=== PATIENT | female | born 1945 | race Caucasian/White ===

== ENCOUNTER → 2016-12-28 | Outpatient (CLI) | payer OTHER ==
--- NOTE | 2016-12-28 13:24 | MA ---
Screening Digital Mammogram With iCAD Analysis Clinical Indications: Routine screening. Technique: The patient has breast implants but would not allow nonimplant-displaced views. Craniocaud al oblique and true lateral views were obtained bilaterally. This examination was processed by the [email or web address] computer-aided detection system. Comparison: October 2015 and January 2007. Breast Density: Type B; Scattered fibroglandular densities. Findings: CAD was reviewed. Limited views show no suspicious findings. There has been no significant change in the appearance of either breast. Impression: Negative limited mammogram. BI-RADS 1. Recommendation: Routine mammographic screening in one year as long as physical examination is negativ [facility] will send a result letter to the patient. Negative mammography should not preclude additional workup of a clinically suspicious finding. The patient's information is entered into a reminder system with a target due date for her next mammo gram.
== END ==
LOC: FIMAGING 11:19
DX: Z12.31 Encounter for screening mammogram for malignant neoplasm of breast (principal)
CPT/HCPCS: G0202

== ENCOUNTER → 2017-03-23 | Outpatient (CLI) | payer OTHER | LOC: FIMAGING 14:23 | PROVIDERS: ATTEND Family Medicine | DX: R05 Cough (principal); R51 Headache; D64.9 Anemia, unspecified; Z95.4 Presence of other heart-valve replacement; I25.10 Atherosclerotic heart disease of native coronary artery without angina pectoris ==

== ENCOUNTER → 2017-07-22 | Outpatient (CLI) | payer OTHER | LOC: FIMAGING 15:17 | PROVIDERS: ATTEND Family Medicine | DX: N20.0 Calculus of kidney (principal); M16.12 Unilateral primary osteoarthritis, left hip ==

== ENCOUNTER → 2017-12-30 | Outpatient (CLI) | payer OTHER | LOC: FIMAGING 11:09 | PROVIDERS: ATTEND Family Medicine | DX: Z12.31 Encounter for screening mammogram for malignant neoplasm of breast (principal) ==

== ENCOUNTER → 2018-02-23 | Outpatient (CLI) | payer OTHER | LOC: FIMAGING 12:11 | PROVIDERS: ATTEND Family Medicine | DX: M16.0 Bilateral primary osteoarthritis of hip (principal) ==

== ENCOUNTER → 2018-03-24 | Outpatient (CLI) | payer OTHER | LOC: FIMAGING 13:20 | PROVIDERS: ATTEND Family Medicine | DX: Z13.820 Encounter for screening for osteoporosis (principal); M81.0 Age-related osteoporosis without current pathological fracture; M25.552 Pain in left hip; K52.9 Noninfective gastroenteritis and colitis, unspecified ==

== ENCOUNTER 2018-09-22 05:57 | Inpatient (IN) | payer OTHER ==
[2018-09-22] MEDS ORDERED: ROPIVACAINE 0.2% 80 MG, EPINEPHrine 0.2 MG, KETOROLAC TROMETHAMINE 30 MG in SYRINGE 0 ML IU ONE (06:00)
[2018-09-22] MEDS ORDERED: TRANEXAMIC ACID 3,000 MG in NS (SYRINGE) 50 ML IRR ONE (06:00)
--- NOTE | 2018-09-22 06:12 | PDHPUP ---
History & Physical Update H&P update statement: This history and physical update is based on an assessment of the patient which was completed after admission or registration (within 24 hours), but prior to the surgery/procedure. H&P update: H&P reviewed & patient examined, no change in patient's condition since H&P completed
[2018-09-22] MEDS ORDERED: FAMOTIDINE 20 MG TAB PO ONE (06:30)
[2018-09-22] MEDS ORDERED: ceFAZolin 2 GM/DEXTROSE 100 ML IV ONE (06:30)
[2018-09-22] MEDS ORDERED: DEXAMETHASONE 4 MG/ML VIAL IVP ONE (06:30)
[2018-09-22] MEDS ORDERED: ACETAMINOPHEN 325 MG TAB PO ONE (06:30)
[2018-09-22] MEDS ORDERED: LR 1,000 ML IV ONE (06:31)
[2018-09-22] MEDS ORDERED: PROPOFOL/EMULSION 500 MG/50 ML BOTTLE IV ONE (07:09)
[2018-09-22] MEDS ORDERED: BUPIVACAINE/DEXTROSE 7.5MG/ML 2 ML SPINAL AMP SP ONE (07:12)
[2018-09-22] MEDS ORDERED: TRANEXAMIC ACID 3,000 MG/50 ML BAG IRR ONE (07:17)
[2018-09-22] MEDS ORDERED: MIDAZOLAM 2 MG/2 ML VIAL IVP ONE (07:22)
--- NOTE | 2018-09-22 07:25 | PDANEPAE ---
ANE History of Present Illness 73 year old woman for left hip arthroplasty. History of aortic valve replacement and CAD. ANE Past Medical History - Cardiovascular History Hx Hypertension: No Hx Arrhythmias: No Hx Chest Pain: No Hx Coronary Artery / Peripheral Vascular Disease: Yes Hx CHF / Valvular Disease: Yes Hx Palpitations: No Cardiovascular History Comment: Hx of LBBB - Pulmonary History Hx COPD: No Hx Asthma/Reactive Airway Disease: No Hx Recent Upper Respiratory Infection: No Hx Oxygen in Use at Home: No Hx Sleep Apnea: No Sleep Apnea Screening Result - Last Documented: Negative - Neurologic History Hx Cerebrovascular Accident: No Hx Seizures: No Hx Dementia: No Neurologic History Comment: nerve pain in left leg from L5-S1 compression - Endocrine History Hx Diabetes: No - Renal History Hx Renal Disorders: No - Liver History Hx Hepatic Disorders: No - Neurological & Psychiatric Hx Hx Neurological and Psychiatric Disorders: Yes Neurological / Psychiatric History Comment: depression, anxiety - Cancer History Hx Cancer: No - Congenital Disorder History Hx Congenital Disorders: No - GI History Hx Gastrointestinal Disorders: Yes Gastrointestinal History Comment: chronic "loose bowels" - Other Health History Other Health History: wears glasses - Chronic Pain History Chronic Pain: Yes (LLE) - Surgical History Prior Surgeries: CABG X2 w/AVR & AAA graft 05/2013. , 1980 ANE Review of Systems Review of systems is: negative Review of Systems: - Exercise capacity METS (RN): 4 METS ANE Patient History - Allergies Allergies/Adverse Reactions: gluten [Gluten] Allergy (Verified 08/29/18 10:16) Diarrhea and Headache - Home Medications Home Medications: Atorvastatin Calcium [Lipitor 20 mg (*)] 20 mg PO DAILY 08/29/18 [Last Taken ] Calcium Carb/Magnesium Oxid/D3 [Calcium Magnesium + D Tablet] 1 each PO DAILY [Last Taken 09/21/18] Cholecalciferol Vit D3 [Vitamin D3 (*)] 2,000 units PO DAILY 08/29/18 [Last Taken 2 Weeks Ago ~09/08/18] FLUoxetine [Prozac 20 MG (*)] 20 mg PO DAILY 08/29/18 [Last Taken 09/19/18] Gabapentin [Neurontin 100 MG (*)] 100 mg PO HS PRN 08/29/18 [Last Taken 09/20/18 ] Garlic 1 each PO DAILY 08/29/18 [Last Taken 2 Weeks Ago ~09/08/18] Multivitamins [Multivitamin (*)] 1 each PO DAILY 08/29/18 [Last Taken 2 Weeks Ago ~09/08/18] [place]-3S/Dha/Epa/Fish Oil [Fish Oil [place]-3 Softgel] 630 mg PO DAILY 08/29/18 [ Last Taken 2 Weeks Ago ~09/08/18] - NPO status NPO Since - Liquids (Date): 09/22/18 NPO Since - Liquids (Time): 05:00 NPO Since - Solids (Date): 09/21/18 NPO Since - Solids (Time): 23:59 - Smoking Hx Smoking Status: Current every day smoker - Family Anes Hx Family Hx Anesthesia Complications: none ANE Labs/Vital Signs - Labs - BMP Potassium: 3.4 Glucose: 101 - Vital Signs Blood Pressure: 125/59 Heart Rate: 62 Respiratory Rate: 18 O2 Sat (%): 98 Height: 167.64 cm Weight: 54.431 kg ANE Physical Exam - Airway Neck exam: FROM Mallampati Score: Class 2 Mouth exam: normal dental/mouth exam - Pulmonary Pulmonary: no respiratory distress - Cardiovascular Cardiovascular: regular rate and rhythym - ASA Status ASA Status: III ANE Anesthesia Plan Anesthesia Plan: spinal
[2018-09-22] MEDS ORDERED: fentaNYL 100 MCG/2 ML INJ ONE (08:23)
[2018-09-22] MEDS ORDERED: NALOXONE HCL 0.4 MG/ML INJ IVP PRN (08:29)
[2018-09-22] MEDS ORDERED: LABETALOL HCL 5 MG/ML 20 ML MDV IVP PRN (08:29)
[2018-09-22] MEDS ORDERED: LR 500 ML IV PRN (08:29)
[2018-09-22] MEDS ORDERED: HYDROCODONE/APAP 5/325 TAB PO PRN (08:29)
[2018-09-22] MEDS ORDERED: fentaNYL 100 MCG/2 ML INJ IVP PRN (08:29)
[2018-09-22] MEDS ORDERED: ONDANSETRON 4 MG/2 ML VIAL IVP PRN ×2 (08:29→09:08)
[2018-09-22] MEDS ORDERED: ALBUTEROL 3 ML DEYVIAL IH PRN (08:29)
[2018-09-22] MEDS ORDERED: PROMETHAZINE HCL 25 MG/ML INJ IVP PRN ×2 (08:35→09:08)
[2018-09-22] MEDS ORDERED: MAGNESIUM HYDROXIDE 30 ML UDCUP PO PRN (09:08)
[2018-09-22] MEDS ORDERED: PROMETHAZINE HCL 25 MG SUPPR PR PRN (09:08)
[2018-09-22] MEDS ORDERED: METOCLOPRAMIDE 10 MG/2 ML VIAL IVP PRN (09:08)
[2018-09-22] MEDS ORDERED: BISACODYL 10 MG SUPP PR PRN (09:08)
[2018-09-22] MEDS ORDERED: POLYETHYLENE GLYCOL 3350 17 GM PKT PO PRN (09:08)
[2018-09-22] MEDS ORDERED: LACTULOSE 20 GM/30 ML UDCUP PO PRN (09:08)
[2018-09-22] MEDS ORDERED: diphenhydrAMINE 25 MG CAP PO PRN (09:08)
[2018-09-22] MEDS ORDERED: ONDANSETRON DISINTEGRATING 4 MG TAB PO PRN (09:08)
[2018-09-22] MEDS ORDERED: TEMAZEPAM 15 MG CAP PO PRN (09:08)
[2018-09-22] MEDS ORDERED: CYCLOBENZAPRINE 10 MG TAB PO PRN (09:08)
[2018-09-22] MEDS ORDERED: DIPHENOXYLATE/ATROPINE LOMOTIL 1 TAB PO PRN (09:08)
--- NOTE | 2018-09-22 09:08 | POSTOPPROG ---
Post Op Note Date of Operation: 09/22/18 Surgeon: Steve Villarreal Veterinary Virologist: ramsey villarreal PA-C Anesthesiologist: dr. chen Anesthesia: Spinal Pre-op Diagnosis: left hip OA Post-op Diagnosis: same Indication: left hip pain Procedure: L AUTUMN ant approach Findings: severe hip OA Inf/Abcess present in the surg proc area at time of surgery?: No EBL: 100-500
[2018-09-22] MEDS ORDERED: GABAPENTIN 100 MG CAP PO PRN (09:10)
[2018-09-22] MEDS ORDERED: LR 1,000 ML IV SCH (09:30)
--- NOTE | 2018-09-22 10:08 | POSTANESTH ---
Post Anesthetic Evaluation Cardiovascular Status: Normal, Stable Respiratory Status: Normal, Stable Level of Consciousness/Mental Status: Can Participate in Eval Pain Control: Adequate, Prn Tx Ordered Nausea/Vomiting Control: Adequate, Prn Tx Ordered Complications Possibly Related to Anesthesia: None Noted
[2018-09-22] MEDS ORDERED: oxyCODONE IR 5 MG TAB ONE (10:41)
[2018-09-22] MEDS: oxyCODONE IR 5 MG TAB PO PRN ×3 (10:43→17:48)
--- NOTE | 2018-09-22 13:40 | PDMN ---
Medical Necessity Medical necessity: Pt meets inpt criteria per MD order and [facility] S-560, Hip Arthroplasty, Medicare inpt only list. 73 y/o admitted for L AUTUMN, ant approach and post-op care, est LOS >2 midnights.
[2018-09-22] MEDS: ACETAMINOPHEN 325 MG TAB PO SCH ×3 (14:18→23:02)
[2018-09-22] MEDS: ceFAZolin 2 GM/DEXTROSE 100 ML IV SCH ×2 (15:43→23:03)
[2018-09-22] MEDS: FAMOTIDINE 20 MG TAB PO SCH (20:48)
[2018-09-22] MEDS: SENNOSIDES/DOCUSATE SODIUM TAB PO SCH (20:48)
[2018-09-22] MEDS: ASPIRIN 81 MG CHEWABLE TAB PO SCH (20:49)
--- NOTE | 2018-09-23 05:38 | GOP ---
DATE OF OPERATION: 09/22/2018 SURGEON: Bhavin Ferreira MD INTELLIGENCE OPERATIONS SPECIALIST: Mary Ferreira, RUSSELL. ANESTHESIA: Spinal. PREOPERATIVE DIAGNOSIS: Left hip osteoarthritis. POSTOPERATIVE DIAGNOSIS: Left hip osteoarthritis. PROCEDURE PERFORMED: Left total hip arthroplasty with x-ray. FINDINGS: ESTIMATED BLOOD LOSS: 200 cc. INDICATIONS: The patient has progressively worsening arthritis of the hip which has failed medical m anagement. The patient understands the treatment options including continued non-operative care and has selected surgical intervention. The patient has decided to undergo total hip arthroplasty via th e direct anterior approach, understanding the risks of the procedure including, but not limited to, n eurovascular injury, infection, persistent pain, component wear and loosening, deep venous thrombosis , pulmonary embolism, limb length inequality, hip instability (including dislocation), and intra-oper ative fractures. DESCRIPTION OF PROCEDURE: After proper identification of the patient including verification and natalie ing the surgical site, the patient was brought to the operating room and placed in the supine positio n. All bony prominences were well padded. Anesthesia was induced without complication and intraveno us prophylactic antibiotics were administered prior to skin incision. The operative leg was placed in the Trumpf Arch table extension and the well leg in a [place] leg ho lder. The patient was prepped and draped in the usual sterile fashion. The C-arm was draped for int ra-operative fluoroscopy to check acetabular position, femoral component position including leg lengt h and femoral offset. Attention was then drawn to surgical exposure of the hip. An incision was made with a #10 Bard [place] r blade starting 3 cm lateral and 3 cm distal to the anterior superior iliac spine measuring 8-10 cm and coursing distally toward the greater trochanter. The skin and subcutaneous tissues were divided sharply down to the fascia aris. The fascia aris was incised in line with the skin incision exposing the underlying tensor fascia aris muscle. The muscle was bluntly elevated from the fascia and the f irst extracapsular Cobra retractor was placed laterally at the junction of the superior femoral neck and greater trochanter. The lateral femoral circumflex vessels were identified, cauterized, and divi ded with the Aquamantys bipolar cautery. The deep investing fascia of the TFL was divided to allow p maria guadalupe mobilization of the muscle preventing damage during the retraction. The reflected head of the rectus femoris muscle was elevated off the anterior hip capsule and a medial Cobra retractor was plac ed just proximal to the lesser trochanter. The anterior capsulotomy was made sharply from the superolateral acetabulum to the saddle junction of the superior femoral neck and greater trochanter, then coursing inferomedial towards the lesser troc hanter. The retractors were then placed in the intracapsular position for femoral neck osteotomy. C orresponding to pre-operative templating, the osteotomy was made with the oscillating saw carefully p rotecting the greater trochanter and soft tissues. The femoral head was removed from the acetabulum with a corkscrew and confirmed to be severely arthritic with exposed bone, deformity and osteophytes. Similar findings were confirmed in the acetabulum. The Arch table extension was then placed in 40 degrees external rotation. Attention was then drawn to the acetabular preparation. After placement of the anterior and posterio r Cobra retractors outside the labrum and intracapsular, the circumferential labrum was removed sharp ly. The foveal contents were then removed and hemostasis obtained with cautery. The first reamer selected was sized using the removed femoral head. Reaming began with medialization and then commenced in 2 mm increments at 45 degrees of abduction and 15 degrees of anteversion using fluoroscopic navigation. Reaming ceased 1 mm less than the definitive acetabular component and sotero esponded to the pre-operative templating. The final acetabular component was inserted using fluorosc opy to achieve proper orientation yielding excellent purchase and stability in the acetabulum. The f inal acetabular liner was then placed and its seating confirmed. Attention was then turned to the femur. The Arch table extension was placed in extension and adducti on, delivering the osteotomized femoral neck into the wound. A 2-pronged femoral elevator was placed at the calcar and another at the tip of the greater trochanter. The posterolateral capsule was rele ased with cautery allowing mobilization of the femur lateral and anterior for preparation. The exter nal rotators were visualized and preserved. A curette and rongeur were used to open the starting poi nt for broaching. Serial broaching started with the #0 broach and ended with the broach that exhibit ed excellent fit in the proximal femur. A change in pitch during mallet strikes was accompanied by t he inability to advance the broach any further. The trial reduction was performed and fluoroscopic n avigation was utilized to check limb length. Adjustments were made to equalize limb length according ly. After the final trials were accepted they were removed and the wound was copiously lavaged. The femo ral component was seated to the same depth as the final broach and the femoral head was impacted onto the clean trunnion. The hip was then reduced for the final time and once more fluoroscopy was used to check that limb length equality was achieved. The wound was irrigated and closed in layers, the fascia aris with 2-0 Quill, the subcutaneous tissue with 2-0 Quill, and the skin with Dermabond. Sterile dressings were applied. Final sharps and spon ge counts were accurate. The patient was then transferred to a hospital bed and brought to the [facility] room in stable condition. IMPLANTS: Accolade II size 5 at 127; acetabular component a 52 mm Trident II; liner a Trident X3 36 mm; head is a Biolox Delta 36 mm, -5. /[id number]/MODL
[2018-09-23] MEDS: ACETAMINOPHEN 325 MG TAB PO SCH ×2 (06:26→12:47)
[2018-09-23] MEDS: oxyCODONE IR 5 MG TAB PO PRN ×3 (06:27→13:49)
[2018-09-23 08:09] VITALS: BP 102/46
[2018-09-23] MEDS ORDERED: FLUoxetine 20 MG CAP PO SCH (09:00)
[2018-09-23] MEDS ORDERED: ATORVASTATIN CALCIUM 20 MG TAB PO SCH (09:00)
[2018-09-23] MEDS: ASPIRIN 81 MG CHEWABLE TAB PO SCH (09:09)
[2018-09-23] MEDS: FAMOTIDINE 20 MG TAB PO SCH (09:10)
[2018-09-23] MEDS: SENNOSIDES/DOCUSATE SODIUM TAB PO SCH ×2 (09:11→09:12)
--- NOTE | 2018-09-23 09:45 | SOAPPROG ---
SOAP Progress Note Assessment/Plan: Assessment: Patient is doing well POD 1 s/p L AUTUMN pain is well controlled on oral pain meds Anemia: level is expected initially postop VTE ppx: recommend ASA 81 mg BID for 4 weeks DEVON matthew and SCDs D/c planning: patient now states today that she has a son that can help take care of her at home until her sister arrives on Tuesday from out of town. Prior to surgery, patient was adamant that she did not have social support and that she would need several nights in the hospital. her son is agreeable to helping care for her until her sister arrives on Tuesday. Plan: 09/23/18 09:43 Subjective: petros is doing well, she states she feels better than anticipated and would like to be discharged to home today if possible. states her son can stay with her. denies SOB, chest pain and N/V. Objective: Vital Signs Temp Pulse Resp BP Pulse Ox 36.9 C 58 L 16 102/46 L 94 09/23/18 08:00 09/23/18 08:00 09/23/18 08:00 09/23/18 08:00 09/23/18 08:00 Laboratory Results 09/23/18 06:09 09/23/18 06:09 09/22/18 09/23/18 09/24/18 05:59 05:59 05:59 Intake Total 2950 Output Total 2125 Balance 825 LLE: incision dressing is clean and dry, NVI, +pf/df ICD10 Worksheet Patient Problems: Problems Problem Status Onset Primary localized osteoarthritis of left hip Acute
== END 2018-09-23 14:47 | disposition home or self-care (01) | DRG 470 ==
LOC: F3N 05:57
PROVIDERS: ADMIT Orthopaedic Surgery; ATTEND Orthopaedic Surgery
PROC: 0SRB04Z Replacement of Left Hip Joint with Ceramic on Polyethylene Synthetic Substitute, Open Approach (ICD-10-PCS; principal; 2018-09-22 08:00)
DX: M16.12 Unilateral primary osteoarthritis, left hip (principal)
CPT/HCPCS: 97116-GP; 97161-GP; 97165-GO; 97535-GO; G8978-GP-CI; G8978-GP-CJ; G8979-GP-CI; G8980-GP-CI; G8987-GO-CI; G8988-GO-CI; G8989-GO-CI; J0171; J0690; J1100; J1885; J2250; J2704; J2795; J3010

== ENCOUNTER → 2019-01-30 | Outpatient (CLI) | payer OTHER | LOC: FIMAGING 11:40 | PROVIDERS: ATTEND Family Medicine | DX: Z12.31 Encounter for screening mammogram for malignant neoplasm of breast (principal); F41.9 Anxiety disorder, unspecified; N64.4 Mastodynia; R19.7 Diarrhea, unspecified; T85.44XA Capsular contracture of breast implant, initial encounter ==